=== PATIENT | female | born 1960 | race Caucasian/White ===

== ENCOUNTER → 2017-10-24 08:33 | Outpatient (CLI) | payer OTHER | END | disposition home or self-care (01) | LOC: D.US 08:33 | DX: R10.11 Right upper quadrant pain (principal) ==

== ENCOUNTER → 2017-11-18 20:09 | Outpatient (CLI) | payer OTHER | END | disposition home or self-care (01) | LOC: D.MAMMO 15:00 | DX: Z12.31 Encounter for screening mammogram for malignant neoplasm of breast (principal) ==

== ENCOUNTER → 2018-05-30 09:04 | Outpatient (CLI) | payer OTHER | END | disposition home or self-care (01) | LOC: D.NM 02-21 08:00 | DX: R10.13 Epigastric pain (principal) ==

== ENCOUNTER → 2019-05-23 14:11 | Outpatient (CLI) | payer BC | END | disposition home or self-care (01) | LOC: D.US 14:11 | PROVIDERS: ATTEND Family Medicine | DX: R22.1 Localized swelling, mass and lump, neck (principal) ==

== ENCOUNTER → 2019-06-06 09:53 | Outpatient (CLI) | payer BC | END | disposition home or self-care (01) | LOC: D.RAD 09:53 | PROVIDERS: ATTEND Family Medicine | DX: R13.12 Dysphagia, oropharyngeal phase (principal) ==